=== PATIENT | male | born 1995 | race Two or more races ===

== ENCOUNTER 2018-07-27 17:14 | Emergency (ER) | payer BC ==
--- NOTE | 2018-07-27 18:52 | UC ---
Abdominal Pain Male HPI - HPI Summary HPI Summary: 22 yo male with increased stooling x 4+ mos 4-6 BMs day usually stools 1 x day no dietary change stools are soft but not diarrheal 2-3 pound wt loss - History of Current Complaint Chief Complaint: UCGI Stated Complaint: INCREASED BOWEL MOVEMENTS Time Seen by Provider: 07/27/18 18:24 Hx Obtained From: Patient Onset/Duration: Gradual Onset, Lasting Weeks Timing: Constant Severity Initially: Mild Severity Currently: Mild Pain Intensity: 0 Pain Scale Used: 0-10 Numeric Location: Other - no pain Radiates: No Character: Other - na Aggravating Factor(s): Food - ? Associated Signs And Symptoms: Negative: Diaphoresis, Fever, Cough, Chest Pain, Dizzy, Back Pain, Constipation, Blood in Stool, Urinary Symptoms, Decreased Appetite, Nausea, Vomiting, Diarrhea, Penile Discharge - Allergies/Home Medications Allergies/Adverse Reactions: Allergies Allergy/AdvReac Type Severity Reaction Status Date / Time No Known Allergies Allergy Verified 07/27/18 17:38 Home Medications: Home Medications Digestive 8/L.acidoph/Pectin [Digestive Enzymes Tablet] 1 tab PO TID AC [History Confirmed 07/27/18] PMH/Surg Hx/FS Hx/Imm Hx Previously Healthy: Yes - Surgical History Surgical History: None - Family History Known Family History: Negative: Cardiac Disease, Hypertension, Diabetes - Social History Alcohol Use: Occasionally Substance Use Type: None Smoking Status (MU): Never Smoked Tobacco Review of Systems All Other Systems Reviewed And Are Negative: Yes Constitutional: Positive: Negative Skin: Positive: Negative Eyes: Positive: Negative ENT: Positive: Negative Respiratory: Positive: Negative Cardiovascular: Positive: Negative Gastrointestinal: Positive: Other - increased stooling Genitourinary: Positive: Negative Motor: Positive: Negative Neurovascular: Positive: Negative Musculoskeletal: Positive: Negative Neurological: Positive: Negative Psychological: Positive: Negative Physical Exam Triage Information Reviewed: Yes Appearance: Well-Appearing, No Pain Distress, Well-Nourished Vital Signs: Initial Vital Signs Temp 98.4 F 07/27/18 17:34 Pulse 76 07/27/18 17:34 Resp 16 07/27/18 17:34 BP 112/66 07/27/18 17:34 Pulse Ox 100 07/27/18 17:34 Vital Signs Reviewed: Yes Eyes: Positive: Conjunctiva Clear ENT: Positive: Hearing grossly normal, Pharynx normal, Uvula midline. Negative : Nasal congestion, Nasal drainage, Tonsillar swelling, Tonsillar exudate, Trismus, Muffled voice, Hoarse voice, Sinus tenderness Neck: Positive: Supple, Nontender, No Lymphadenopathy Respiratory: Positive: Lungs clear, Normal breath sounds, No respiratory distress, No accessory muscle use Cardiovascular: Positive: RRR, No Murmur Abdominal Exam: Normal Musculoskeletal: Positive: ROM Intact, No Edema Neurological: Positive: Alert Psychological Exam: Normal Skin Exam: Normal Abd Pain Male Course/Dx - Differential Dx/Clinical Impression Provider Diagnosis: Change in bowel habit, Weight loss Discharge - Sign-Out/Discharge Documenting (check all that apply): Patient Departure All imaging exams completed and their final reports reviewed: No Studies - Discharge Plan Condition: Stable Disposition: HOME Referrals: Preston Yang DO [Doctor of Osteopathy] - (call and make an appt) Additional Instructions: due to your change in bowel habits and wt loss I suggest you see a specialist - Billing Disposition and Condition Condition: STABLE Disposition: Home
== END 2018-07-27 19:11 | disposition home or self-care (01) ==
LOC: UCCORT 17:14
DX: R19.4 Change in bowel habit (principal); R63.4 Abnormal weight loss
CPT/HCPCS: 99201; G0463

== ENCOUNTER 2018-08-16 17:01 | Emergency (ER) | payer BC ==
--- NOTE | 2018-08-16 17:44 | ED ---
Skin Complaint - HPI Summary HPI Summary: 22 yrold with cyst in pilonidal area that is enlarged for a week with pain. The area started draining last evening. His pain is improved. He denies fever and chills. He has no other complaints. - History of Current Complaint Chief Complaint: UCSkin Time Seen by Provider: 08/16/18 17:34 Stated Complaint: PT STATES PILONIDAL CYST Pain Intensity: 2 - Allergy/Home Medications Allergies/Adverse Reactions: Allergies Allergy/AdvReac Type Severity Reaction Status Date / Time No Known Allergies Allergy Verified 08/16/18 17:28 Home Medications: Home Medications Dicyclomine HCl 20 mg PO DAILY 08/16/18 [History Confirmed 08/16/18] Ibuprofen 400 mg PO Q6HR PRN 08/16/18 [History Confirmed 08/16/18] PMH/Surg Hx/FS Hx/Imm Hx Infectious Disease History: No Infectious Disease History: Denies: Traveled Outside the [place] in Last 30 Days - Family History Known Family History: Positive: None Negative: Cardiac Disease, Hypertension, Diabetes - Social History Occupation: Employed Full-time Alcohol Use: Occasionally Substance Use Type: Reports: None Smoking Status (MU): Never Smoked Tobacco Review of Systems Constitutional: Negative Positive: Other - pilonidal cysts swelling, drainage All Other Systems Reviewed And Are Negative: Yes Physical Exam Triage Information Reviewed: Yes Vital Signs On Initial Exam: Initial Vitals Temp Pulse Resp BP Pulse Ox 99.7 F 88 16 112/65 98 08/16/18 17:23 08/16/18 17:23 08/16/18 17:23 08/16/18 17:23 08/16/18 17:23 Vital Signs Reviewed: Yes Appearance: Positive: Well-Appearing, No Pain Distress Skin: Positive: Other - in the pilonidal area there is a cyst with purulent drainage present. Head/Face: Positive: Normal Head/Face Inspection Eyes: Positive: EOMI ENT: Positive: Normal ENT inspection Neck: Positive: Nontender Respiratory/Lung Sounds: Positive: Clear to Auscultation, Breath Sounds Present Cardiovascular: Positive: RRR. Negative: Murmur Abdomen Description: Negative: Distended Musculoskeletal: Positive: Strength/ROM Intact Neurological: Positive: Sensory/Motor Intact, Alert, Oriented to Person Place, Time, CN Intact II-III Psychiatric: Positive: Normal Diagnostics - Vital Signs Vital Signs Temp Pulse Resp BP Pulse Ox 08/16/18 17:23 99.7 F 88 16 112/65 98 - Laboratory Lab Statement: Any lab studies that have been ordered have been reviewed, and results considered in the medical decision making process. Course/Dx - Course Course Of Treatment: 22 yr old with spontaneous drainage from pilonidal cyst. Plan DC home on Bactrim DS. FU with primary referral. - Diagnoses Provider Diagnoses: Infected pilonidal cyst Discharge - Sign-Out/Discharge Documenting (check all that apply): Patient Departure All imaging exams completed and their final reports reviewed: No Studies - Discharge Plan Condition: Good Disposition: HOME Prescriptions: Sulfamethox/Trimethoprim DS* [Bactrim DS 800/160 TAB*] 1 tab PO BID #20 tab Patient Education Materials: Pilonidal Cyst (ED) Referrals: No Primary Care Phys,NOPCP [Primary Care Provider] - [facility] – [place] [place] [facility] [Outside] - 4 Days - Billing Disposition and Condition Condition: GOOD Disposition: Home
== END 2018-08-16 17:49 | disposition home or self-care (01) ==
LOC: UCCORT 17:01
DX: L05.91 Pilonidal cyst without abscess (principal)
CPT/HCPCS: 99212; G0463

== ENCOUNTER 2019-02-02 17:43 | Emergency (ER) | payer BC ==
[2019-02-02 19:17] VITALS: BP 107/61
--- NOTE | 2019-02-02 19:25 | UC ---
Ear Complaint HPI - HPI Summary HPI Summary: 23 y/o male presents to the urgent care c/o RT ear pain and pressure and plugged w/ mild dizziness, nasal congestion w/ yellowish nasal discharge for the past week. URI symptoms started first and then this morning he felt dizzy for one second when he tries to clear his ear pressure and blow through his nose. He has been taking Sudafed PO since yesterday which is helping. Moderate PND, but not cough. Sinus pain is 4/10. Pt denies fever, SOB, visual changes, photophobia, FELICIANO, chest pain, abdominal pain, N/V/D. - History of Current Complaint Chief Complaint: UCRespiratory Stated Complaint: EAR CLOGGED, BLURRED VISION Time Seen by Provider: 02/02/19 19:24 Hx Obtained From: Patient Onset/Duration: Gradual Onset, Lasting Weeks - 1 week w/ nasal congestion and yellowish nasal discharge Severity Initially: Mild Severity Currently: Mild Pain Intensity: 4 Pain Scale Used: 0-10 Numeric Alleviating Factors: OTC Meds Associated Signs/Symptoms: Positive: Hearing Loss - Rt ear, URI Symptoms - Allergies/Home Medications Allergies/Adverse Reactions: Allergies Allergy/AdvReac Type Severity Reaction Status Date / Time No Known Allergies Allergy Verified 02/02/19 19:17 Home Medications: Home Medications Decongestant Tab 1 tab PO BID PRN 02/02/19 [History] Flu Vaccine 1 dose IM ONCE 02/02/19 [History] PMH/Surg Hx/FS Hx/Imm Hx Previously Healthy: Yes - Pt denies PMHX - Surgical History Surgical History: None - Family History Known Family History: Positive: None - Pt denies FMHX Negative: Cardiac Disease, Hypertension, Diabetes - Social History Occupation: Employed Full-time Lives: With Family Alcohol Use: Rare Substance Use Type: Excessive Caffeine Smoking Status (MU): Former Smoker When Did the Patient Quit Smoking/Using Tobacco: 01/2018 - Immunization History Vaccination Up to Date: Yes Review of Systems All Other Systems Reviewed And Are Negative: Yes Constitutional: Positive: Negative Skin: Positive: Negative Eyes: Positive: Negative ENT: Positive: Ear Ache - Rt ear pain, fullness and pressure, Nasal Discharge - yellowish, Sinus Congestion, Sinus Pain/Tenderness, Other - moderate yellowish PND Respiratory: Positive: Negative Cardiovascular: Positive: Negative Gastrointestinal: Positive: Negative Genitourinary: Positive: Negative Motor: Positive: Negative Neurovascular: Positive: Negative Musculoskeletal: Positive: Negative Neurological: Positive: Negative Psychological: Positive: Negative Is Patient Immunocompromised?: No Physical Exam - Summary Physical Exam Summary: Vitals: reviewed General: Well developed, well-nourished male patient with NAD. Head and face: Normocephalic and atraumatic, Positive tenderness over the frontal and maxillary sinuses.. Eyes: PERRLA, EOMI x 2. Normal conjunctiva. No eye discharge. ENT: B/L external Ear canal clear. RT TM injected w/ erythema and bulging w/ mild fluid, no perforation. LF TM WNL. Nose: edematous and erythematous nasal mucosa with with yellowish discharge and erythematous mucosa. Pharynx with erythema, no exudate. yellowish PND Neck: Supple, no JVD, no carotid bruits and no lymphadenopathy. Lungs: clear, no rales, no rhonchi, no wheezes. CVS: RRR, S1 and S2 present no murmurs or gallops appreciated. Abdomen: soft nontender with positive bowel sounds. Extremities: no edema noted. Neuro: WNL. Skin: warm and dry Triage Information Reviewed: Yes Vital Signs: Initial Vital Signs Temp 99 F 02/02/19 19:09 Pulse 62 02/02/19 19:09 Resp 18 02/02/19 19:09 BP 107/61 02/02/19 19:09 Pulse Ox 100 02/02/19 19:09 Ear Complaint Course/Dx - Course Course Of Treatment: 23 y/o male presents to the urgent care c/o RT ear pain and pressure and plugged w/ mild dizziness, nasal congestion w/ yellowish nasal discharge for the past week. URI symptoms started first and then this morning he felt dizzy for one second when he tries to clear his ear pressure and blow through his nose. He has been taking Sudafed PO since yesterday which is helping. Moderate PND, but not cough. Sinus pain is 4/10. Pt denies fever, SOB, visual changes, photophobia, FELICIANO, chest pain, abdominal pain, N/V/D. Pt with 1 weeks of symptoms getting worse. Pt w/ Rt otitis media and bacterial sinusitis on examination. Pt Rx Amoxicillin PO and flonase nasal spray. Advised to continue taking Sudafed PO to alleviate congestion. Discharge instructions explained to Pt. Advised to Return to the clinic or PCP in 3 days if symptoms do not improve. D/C instructions explained. Pt understood and agreed with plan of care. - Differential Dx/Diagnosis Differential Diagnosis/HQI/PQRI: Cerumen Impaction, Otitis Externa, Otitis Media , Perforated TM, URI, Other - sinusitis Provider Diagnosis: Right otitis media, Sinusitis Discharge ED - Sign-Out/Discharge Documenting (check all that apply): Patient Departure - D/C home All imaging exams completed and their final reports reviewed: No Studies - Discharge Plan Condition: Stable Disposition: HOME Prescriptions: Amoxicillin PO (*) [Amoxicillin 500 MG CAP*] 500 mg PO Q12H #14 cap Fluticasone NASAL SPRAY 50MCG* [Flonase NASAL SPRAY 50MCG*] 2 spray BOTH NARES DAILY #1 btl Patient Education Materials: Sinusitis (ED), Ear Infection (ED) Referrals: [facility] [place] [facility] [place]] - 3 Days Additional Instructions: 1- Please increase fluid intake and rest. take full course of antibiotics to avoid resistance. Take yogurts w/ probiotics or Culturelle to protect your GI system 2-Use Flonase as directed to help drain fluid. Also buy saline drops to clear sinuses 3-Continue taking Sudafed PO to alleviates sinus congestion 4-Please f/u w/ your PCP in 3 days if symptoms do not improve for further management and treatment - Billing Disposition and Condition Condition: STABLE Disposition: Home
== END 2019-02-02 20:15 | disposition home or self-care (01) ==
LOC: UCCORT 17:43
DX: H66.91 Otitis media, unspecified, right ear (principal); J32.9 Chronic sinusitis, unspecified; Z87.891 Personal history of nicotine dependence; R42 Dizziness and giddiness
CPT/HCPCS: 99212; G0463

== ENCOUNTER 2019-02-11 17:13 | Emergency (ER) | payer BC ==
[2019-02-11 17:28] VITALS: BP 110/63
--- NOTE | 2019-02-11 17:40 | ED ---
Throat Pain/Nasal Congestion - HPI Summary HPI Summary: 23 yr old male with the complaint of persistent right ear pressure, fullness. He has had symptoms for a couple of weeks. He was put on Amoxicillin, but only marginally improved. He has no runny nose or coughing. No other complaints. - History of Current Complaint Chief Complaint: UCEar Time Seen by Provider: 02/11/19 17:32 - Allergies/Home Medications Allergies/Adverse Reactions: Allergies Allergy/AdvReac Type Severity Reaction Status Date / Time No Known Allergies Allergy Verified 02/11/19 17:28 PMH/Surg Hx/FS Hx/Imm Hx Infectious Disease History: No Infectious Disease History: Denies: Traveled Outside the [place] in Last 30 Days - Family History Known Family History: Positive: None - Pt denies FMHX Negative: Cardiac Disease, Hypertension, Diabetes - Social History Occupation: Employed Full-time Alcohol Use: Rare Substance Use Type: Reports: Excessive Caffeine Smoking Status (MU): Former Smoker Review of Systems Constitutional: Negative Positive: Ear Ache All Other Systems Reviewed And Are Negative: Yes Physical Exam Triage Information Reviewed: Yes Vital Signs On Initial Exam: Initial Vitals Temp Pulse Resp BP Pulse Ox 98 F 54 18 110/63 100 02/11/19 17:23 02/11/19 17:23 02/11/19 17:23 02/11/19 17:23 02/11/19 17:23 Vital Signs Reviewed: Yes Appearance: Positive: Well-Appearing, No Pain Distress Skin: Positive: Warm, Skin Color Reflects Adequate Perfusion Head/Face: Positive: Normal Head/Face Inspection Eyes: Positive: EOMI ENT: Positive: Pharynx normal, TM red - right with retraction, Uvula midline. Negative: Nasal congestion, Nasal drainage Neck: Positive: Nontender Respiratory/Lung Sounds: Positive: Clear to Auscultation, Breath Sounds Present Cardiovascular: Positive: RRR. Negative: Murmur Abdomen Description: Negative: Distended Musculoskeletal: Positive: Strength/ROM Intact Neurological: Positive: Sensory/Motor Intact, Alert, Oriented to Person Place, Time, CN Intact II-III Psychiatric: Positive: Normal Diagnostics - Vital Signs Vital Signs Temp Pulse Resp BP Pulse Ox 02/11/19 17:23 98 F 54 18 110/63 100 - Laboratory Lab Statement: Any lab studies that have been ordered have been reviewed, and results considered in the medical decision making process. EENT Course/Dx - Course Course Of Treatment: 23 yr old with persistent right otitis media after amoxicillin. Rx augmentin. - Diagnoses Provider Diagnoses: Otitis media Discharge ED - Sign-Out/Discharge Documenting (check all that apply): Patient Departure All imaging exams completed and their final reports reviewed: No Studies - Discharge Plan Condition: Good Disposition: HOME Prescriptions: Amoxicillin/Clavulanate TAB* [Augmentin TAB 875*] 875 mg PO BID #20 tab Patient Education Materials: Ear Infection (ED) Referrals: No Primary Care Phys,NOPCP [Primary Care Provider] - [facility] [place] [place]Outside] - 4 Days - Billing Disposition and Condition Condition: GOOD Disposition: Home
== END 2019-02-11 17:51 | disposition home or self-care (01) ==
LOC: UCCORT 17:13
DX: H66.91 Otitis media, unspecified, right ear (principal); Z87.891 Personal history of nicotine dependence
CPT/HCPCS: 99212; G0463